=== PATIENT | female | born 1985 | race Caucasian/White ===

== ENCOUNTER → 2016-08-05 | Outpatient (CLI) | payer BC ==
[2016-08-05 16:05] LABS: CHLORIDE,CL 103 mmol/L (98-110); SODIUM,NA 139 mmol/L (136-146)
== END ==
LOC: MW.CHFP 15:30
PROVIDERS: ATTEND Nurse Practitioner Family
DX: R53.83 Other fatigue (principal)
CPT/HCPCS: 36415; 80053; 84443; 84703; 85025

== ENCOUNTER 2017-04-26 05:22 | Inpatient (IN) | payer BC ==
[2017-04-26] MEDS ORDERED: Sodium Chloride 0.9% 2.5 ML Syringe FLUSH PRN (05:33)
[2017-04-26] MEDS ORDERED: ceFAZolin 2 GM in Premix Bag 1 BAG IV ONE (05:33)
[2017-04-26] MEDS ORDERED: Sodium Chloride 0.9% 10 ML Syringe FLUSH PRN (05:33)
[2017-04-26] MEDS ORDERED: Oxytocin/0.9 % Sodium Chloride 30 UNIT/500 ML BAG IV SCH (05:45)
[2017-04-26] MEDS: Lactated Ringers 1,000 ML IV SCH ×2 (05:45→07:33)
[2017-04-26] MEDS: Citric Acid/Sodium Citrate Solution 30 ML Cup PO SCH ×2 (06:23→07:51)
[2017-04-26] MEDS ORDERED: Morphine PF 10 MG/10 ML SDV ONE (06:53)
[2017-04-26] MEDS ORDERED: Oxytocin 10 Units/1 ML SDV ONE (06:54)
[2017-04-26] MEDS ORDERED: Ondansetron 4 MG/2 ML SDV ONE (06:54)
[2017-04-26] MEDS ORDERED: Phenylephrine 1% 10 MG/ML SDV ONE (06:54)
--- NOTE | 2017-04-26 07:29 | PCM.PREANE ---
Preanesthetic Assessment - Anesthesia/Transfusion/Family Hx Anesthesia History: Prior Anesthesia Without Reaction Other Type of Anesthesia Reaction Comment: history of Motion sickness, Denies any problem with prior anesthesia Family History of Anesthesia Reaction: No Transfusion History: No Prior Transfusion(s) - Review of Systems General: No Symptoms Pulmonary: No Symptoms Cardiovascular: No Symptoms Gastrointestinal: No Symptoms Neurological: No Symptoms Other: Reports: None - Physical Assessment NPO Status Date: 04/25/17 Height: 1.63 m Weight: 75.75 kg ASA Class: 2 Mental Status: Alert & Oriented x3 Airway Class: Mallampati = 1 Dentition: Reports: Normal Dentition ROM/Head Extension: Full Lungs: Clear to Auscultation, Normal Respiratory Effort Cardiovascular: Regular Rate, Regular Rhythm - Lab Values: Laboratory Last Values WBC 8.67 K/uL (4.0-11.0) 04/25/17 15:24 RBC 3.81 M/uL (4.30-5.90) L 04/25/17 15:24 Hgb 11.6 g/dL (12.0-16.0) L 04/25/17 15:24 Hct 34.6 % (36.0-46.0) L 04/25/17 15:24 MCV 90.8 fL (80.0-98.0) 04/25/17 15:24 MCH 30.4 pg (27.0-32.0) 04/25/17 15:24 MCHC 33.5 g/dL (31.0-37.0) 04/25/17 15:24 RDW Std Deviation 45.8 fl (28.0-62.0) 04/25/17 15:24 RDW Coeff of Loulou 14 % (11.0-15.0) 04/25/17 15:24 Plt Count 189 K/uL (150-400) 04/25/17 15:24 MPV 11.10 fL (7.40-12.00) 04/25/17 15:24 Nucleated RBC % 0.0 /100WBC 04/25/17 15:24 Nucleated RBCs # 0 K/uL 04/25/17 15:24 Blood Type O POSITIVE 04/25/17 15:24 Antibody Screen NEGATIVE 04/25/17 15:24 - Allergies Allergies/Adverse Reactions: Allergies Allergy/AdvReac Type Severity Reaction Status Date / Time No Known Allergies Allergy Verified 03/06/15 19:42 - Anesthesia Plan Pre-Op Medication Ordered: Antacids - Acknowledgements Anesthesia Type Planned: Spinal Pt an Appropriate Candidate for the Planned Anesthesia: Yes Alternatives and Risks of Anesthesia Discussed w Pt/Guardian: Yes Pt/Guardian Understands and Agrees with Anesthesia Plan: Yes PreAnesthesia Questionnaire Cardiovascular History: Reports: Syncope Other Cardiovascular History: elevated blood pressure with 1st Gastrointestinal History: Reports: Other (See Below) Other Gastrointestinal History: occasional heartburn with Genitourinary History: Reports: None S [employer] WORKER History: Reports: Other OB/BYN History: Prior pre-term delivery due to eclampsia 33 weeks gestation . pre eclampsia Other Musculoskeletal History: Low and mid back pain, "related to the " Not chronic no problem in past Neurological History: Reports: Migraines Other Neuro History: hx: migraines 'no aura' Psychiatric History: Reports: Anxiety, Depression Other Psychiatric History: On medication when not Other Dermatologic History: Acne in - Past Surgical History Head Surgeries/Procedures: Reports: None Female Surgical History: Reports: Section, LEEP - SUBSTANCE USE Smoking Status *Q: Never Smoker Second Hand Smoke Exposure: No Recreational Drug Use History: No - HOME MEDS Home Medications: Home Meds Vit No.78/Iron/Fa [Prenatabs FA] 1 tab PO DAILY 02/25/15 [History] Acetaminophen [Tylenol Extra Strength] 1 tab PO ASDIRECTED PRN 04/20/17 [History ] Doxylamine Succinate [Unisom] 1 tab PO BEDTIME PRN 04/20/17 [History] - CURRENT (IN HOUSE) MEDS Current Meds: Current Medications Citric Acid/Sodium Citrate (Bicitra Solution) 30 ml PO .ONCE MICAH Last Admin: 04/26/17 06:23 Dose: 30 ml Lactated Ringer's (Ringers, Lactated) 1,000 mls @ 500 mls/hr IV .BOLUS MICAH Last Admin: 04/26/17 05:45 Dose: 500 mls/hr Oxytocin/Sodium Chloride (Oxytocin 30 Unit/500 Ml-Ns) 30 unit in 500 mls @ 250 mls/hr IV TITRATE MICAH Sodium Chloride (Saline Flush) 10 ml FLUSH ASDIRECTED PRN PRN Reason: Keep Vein Open Sodium Chloride (Saline Flush) 2.5 ml FLUSH ASDIRECTED PRN PRN Reason: Keep Vein Open Discontinued Medications Cefazolin Sodium/Dextrose 2 gm (/ Premix) 50 mls @ 100 mls/hr IV ONETIME ONE Stop: 04/26/17 06:02 Morphine Sulfate (Duramorph Pf) Confirm Administered Dose 10 mg .ROUTE .STK-MED ONE Stop: 04/26/17 06:54 Ondansetron HCl (Zofran) Confirm Administered Dose 4 mg .ROUTE .STK-MED ONE Stop: 04/26/17 06:55 Oxytocin (Pitocin) Confirm Administered Dose 20 unit .ROUTE .STK-MED ONE Stop: 04/26/17 06:55 Phenylephrine HCl (Burke-Synephrine) Confirm Administered Dose 10 mg .ROUTE .STK- MED ONE Stop: 04/26/17 06:55
[2017-04-26] MEDS ORDERED: fentaNYL 100 MCG/2 ML SDV IVPUSH PRN (08:27)
[2017-04-26] MEDS ORDERED: Nalbuphine 10 MG/1 ML Vial IVPUSH PRN (08:27)
[2017-04-26] MEDS ORDERED: Acetaminophen/oxyCODONE 325-5 MG Tab PO PRN ×2 (08:27→08:49)
[2017-04-26] MEDS ORDERED: Octyl 2-Cyanoacrylate 1 Tube ONE (08:38)
[2017-04-26] MEDS ORDERED: diphenhydrAMINE 50 MG/ML SDV IVPUSH PRN ×2 (08:49→09:29)
[2017-04-26] MEDS ORDERED: Bisacodyl 10 MG Supp RECTAL PRN (08:49)
[2017-04-26] MEDS ORDERED: Ondansetron 4 MG/2 ML SDV IV PRN (08:49)
[2017-04-26] MEDS ORDERED: Lanolin 100% Cream 7 GM Tube TOP PRN (08:49)
--- NOTE | 2017-04-26 08:57 | PCM.OPNOTE ---
- General Post-Op/Procedure Note Date of Surgery/Procedure: 04/26/17 Operative Procedure(s): repeat low transverse Findings: liveborn female 8/9 weight 4070 grams, normal pelvis Pre Op Diagnosis: Previous , 39 weeks gestation, declines VTOL Post-Op Diagnosis: Same Anesthesia Technique: Spinal Primary Surgeon: Aye Jimenez Anesthesia Provider: Pio Beck Estate Attorney: Heaven Grant Fluid Replacement, Intraop: 2,500 Output, Urine Amount: 200 EBL in mLs: 700 Complications: None Known Condition: Good
[2017-04-26] MEDS ORDERED: Lactated Ringers 1,000 ML IV SCH (09:00)
[2017-04-26] MEDS ORDERED: Naloxone 0.4 MG/ML Syringe IVPUSH PRN (09:29)
[2017-04-26] MEDS: Ketorolac 30 MG/ML SDV IVPUSH SCH ×3 (09:29→21:13)
--- NOTE | 2017-04-26 09:32 | PCM.POSTAN ---
POST ANESTHESIA ASSESSMENT - MENTAL STATUS Mental Status: Alert, Oriented - VITAL SIGNS Pulse Rate: 70 SaO2: 96 Resp Rate: 18 - RESPIRATORY Respiratory Status: Respiratory Rate WNL, Airway Patent, O2 Saturation Stable - CARDIOVASCULAR CV Status: Pulse Rate WNL, Blood Pressure Stable - GASTROINTESTINAL GI Status: No Symptoms - PAIN Pain Score: 0 - POST OP HYDRATION Hydration Status: Adequate & Stable
[2017-04-26] MEDS: Nalbuphine 10 MG/1 ML Vial IVPUSH PRN ×2 (10:31→13:09)
[2017-04-26] MEDS: Docusate Sodium 100 MG Cap PO SCH ×2 (10:31→21:13)
--- NOTE | 2017-04-26 10:33 | OR ---
SURGEON: Aye Jimenez M.D. DATE OF PROCEDURE: 04/26/2017 PREOPERATIVE DIAGNOSIS: A 39-week intrauterine . Prior delivery x2. Declines vaginal trial of labor. POSTOPERATIVE DIAGNOSIS: A 39-week intrauterine . Prior delivery x2. Declines vaginal trial of labor. PROCEDURE: Repeat low transverse section. ANESTHESIA: Spinal. ESTIMATED BLOOD LOSS: 700 mL with amniotic fluid. Fluids were 2500 mL of crystalloid. FINDINGS: Liveborn female, score 8 and 9, weighing 4070 g. Normal-appearing uterus, tubes, and ovaries. COMPLICATIONS: None known. DISPOSITION: Stable to recovery. BRIEF HISTORY: This is a 31-year-old female. She is G3, P1-1-0-2. She presents at 39 weeks' gestation for repeat delivery. This has been uncomplicated. She has been on baby aspirin until 36 weeks' gestation due to a history of HELLP syndrome. She is blood type O positive, rubella immune, group B strep negative. She does have a history of anxiety. She recently restarted Zoloft and is up to 50 mg daily. At this point, she desires a repeat delivery and she did have polyhydramnios during the with negative TORCH titers and reassuring biophysical profiles. She is group B strep negative. Risks of delivery were discussed including bleeding, infection, injury to bowel, bladder, blood vessels, injury to other organs, risk of thromboembolic event, risk of anesthesia. Understanding all these risks, she does desire to proceed. DESCRIPTION OF PROCEDURE: With the patient in left tilt position, under adequate spinal analgesia, the abdomen was prepped with chlorhexidine and draped in usual fashion for abdominal surgery. SCDs were in place. Alicia catheter had been placed and she received 2 g of Ancef IV. After documentation of adequate analgesia, the prior cicatrix was excised and the incision was carried through the subcutaneous tissue to the fascia, which was scored transversely in the midline. The fascial incision was extended laterally using curved Oshea scissors. The fascia was elevated from the underlying rectus muscle and using sharp and blunt dissection. The rectus muscles were in the midline. The parietal peritoneum was elevated with hemostats and incised using Metzenbaum scissors. A finger was placed into the peritoneal cavity. There were no adhesions. The incision was extended cephalad and caudad using sharp and blunt dissection. The Michael O C- section retractor was placed. The visceroperitoneum over the lower uterine segment was incised to develop an adequate bladder flap. A transverse curvilinear incision was made over the lower uterine segment using a scalpel. A finger was used to enter the amniotic cavity. Clear fluid was noted. The incision was extended using blunt dissection in a cephalad caudad traction. The head was delivered via the uterine incision with subsequent delivery of the 's shoulders and body without any difficulty. The cord was clamped x2 and cut and the was handed to the nurse in the presence of delivery. The was a liveborn female, score 8 and 9, weighing 4070 g. Cord blood was collected for cord ABGs as well as routine cord blood sampling. The placenta was removed by manual extraction. The uterus was cleaned with a dry laparotomy tape. The cervix was opened with ring forceps. The uterine incision was closed with a running locked suture of 0 Polysorb followed by an imbricating layer of 0 Polysorb. The uterine incision was hemostatic. The pericolic gutters, posterior cul-de-sac were cleaned with a wet laparotomy tape. The tubes and ovaries were inspected and appeared normal. There was noted to be a right paratubal cyst. The incision was again inspected and was hemostatic; therefore, the Michael O retractor was removed and after a final inspection confirmed hemostasis. The rectus muscles were loosely approximated in the midline using a running mattress suture of 0 Polysorb. The posterior aspect of the fascia was inspected for hemostasis and once this was confirmed, the fascial incision was closed using a running suture of 0 Polysorb. Subcutaneous tissue was copiously irrigated, cleaned, and cauterized for any areas of bleeding. The skin was then closed with a running subcuticular suture of 3-0 Polysorb followed by Dermabond. Final sponge, needle, and instrument counts were reported as correct. There were no known complications. Mother is in the recovery room in good condition. is in nursery in good condition. RICARDO TAYLOR /[id number]
[2017-04-26] MEDS: Sertraline 50 MG Tab PO SCH (21:13)
[2017-04-27] MEDS: Ketorolac 30 MG/ML SDV IVPUSH SCH ×2 (02:57→09:14)
[2017-04-27] MEDS: Docusate Sodium 100 MG Cap PO SCH ×2 (09:14→20:40)
--- NOTE | 2017-04-27 10:47 | PCM.PNPP ---
- General Info Date of Service: 04/27/17 Functional Status: Reports: Pain Controlled, Tolerating Diet, Ambulating, Urinating, Other (passed flatus) - Review of Systems General: Reports: No Symptoms HEENT: Reports: No Symptoms Pulmonary: Reports: No Symptoms Cardiovascular: Reports: No Symptoms Gastrointestinal: Reports: No Symptoms Genitourinary: Reports: No Symptoms Musculoskeletal: Reports: No Symptoms Skin: Reports: No Symptoms Neurological: Reports: No Symptoms Psychiatric: Reports: No Symptoms - General Info Date of Service: 04/27/17 - Patient Data Vital Signs - Most Recent: Last Vital Signs Temp 36.8 C 04/27/17 08:00 Pulse 95 04/27/17 04:00 Resp 20 04/27/17 08:00 BP 132/86 04/27/17 08:00 Pulse Ox 98 04/27/17 08:00 Weight - Most Recent: 75.75 kg I&O - Last 24 Hours: Intake & Output 04/26/17 04/27/17 04/27/17 22:59 06:59 14:59 Intake Total 400 Output Total 450 600 Balance -450 -200 Lab Results - Last 24 Hours: Laboratory Results - last 24 hr 04/27/17 Range/Units 05:10 Hgb 9.7 L (12.0-16.0) g/dL Hct 30.1 L (36.0-46.0) % Med Orders - Current: Current Medications Bisacodyl (Dulcolax) 10 mg RECTAL .ONCE PRN PRN Reason: Constipation Diphenhydramine HCl (Benadryl) 25 mg IVPUSH Q6H PRN PRN Reason: Itching or Nausea Last Admin: 04/26/17 15:10 Dose: 25 mg Docusate Sodium (Colace) 100 mg PO BID [facility] Last Admin: 04/27/17 09:14 Dose: 100 mg Emollient Ointment (Lansinoh Hpa) 0 gm TOP ASDIRECTED PRN PRN Reason: Sore Nipples Lactated Ringer's (Ringers, Lactated) 1,000 mls @ 125 mls/hr IV ASDIRECTED MICAH Last Admin: 04/26/17 19:42 Dose: 125 mls/hr Ibuprofen (Motrin) 800 mg PO Q8H PRN PRN Reason: mild pain or fever Ondansetron HCl (Zofran) 4 mg IV Q4H PRN PRN Reason: Nausea/Vomiting Oxycodone/Acetaminophen (Percocet 325-5 Mg) 1 tab PO Q4H PRN PRN Reason: Pain (moderate 4-6) Oxycodone/Acetaminophen (Percocet 325-5 Mg) 2 tab PO Q4H PRN PRN Reason: Pain (moderate 4-6) Sertraline HCl (Zoloft) 50 mg PO BEDTIME [facility] Last Admin: 04/26/17 21:13 Dose: 50 mg Discontinued Medications Citric Acid/Sodium Citrate (Bicitra Solution) 30 ml PO .ONCE [facility] Last Admin: 04/26/17 07:51 Dose: 30 ml Diphenhydramine HCl (Benadryl) 25 mg IVPUSH Q4H PRN PRN Reason: Itching Stop: 04/27/17 09:30 Last Admin: 04/26/17 19:49 Dose: 25 mg Fentanyl (Sublimaze) 50 mcg IVPUSH Q5M PRN PRN Reason: Pain (severe 7-10) Stop: 04/27/17 08:27 Cefazolin Sodium/Dextrose 2 gm (/ Premix) 50 mls @ 100 mls/hr IV ONETIME ONE Stop: 04/26/17 06:02 Lactated Ringer's (Ringers, Lactated) 1,000 mls @ 500 mls/hr IV .BOLUS [facility] Last Admin: 04/26/17 07:33 Dose: 999 mls/hr Oxytocin/Sodium Chloride (Oxytocin 30 Unit/500 Ml-Ns) 30 unit in 500 mls @ 250 mls/hr IV TITRATE [facility] Ketorolac Tromethamine (Toradol) 30 mg IVPUSH Q6H [facility] Stop: 04/27/17 09:01 Last Admin: 04/27/17 09:14 Dose: 30 mg Morphine Sulfate (Duramorph Pf) Confirm Administered Dose 10 mg .ROUTE .STK-MED ONE Stop: 04/26/17 06:54 Nalbuphine HCl (Nubain) 2.5 mg IVPUSH Q3H PRN PRN Reason: Pruritis Stop: 04/27/17 08:27 Nalbuphine HCl (Nubain) 5 mg IVPUSH Q3H PRN PRN Reason: Pruritis Stop: 04/27/17 09:30 Last Admin: 04/26/17 13:09 Dose: 5 mg Naloxone HCl (Narcan) 0.1 mg IVPUSH ONETIME PRN PRN Reason: Respiratory Depression Stop: 04/27/17 09:30 Octyl Cyanoacrylate (Dermabond Advance) Confirm Administered Dose 1 applic .ROUTE .STK-MED ONE Stop: 04/26/17 08:39 Ondansetron HCl (Zofran) Confirm Administered Dose 4 mg .ROUTE .STK-MED ONE Stop: 04/26/17 06:55 Oxycodone/Acetaminophen (Percocet 325-5 Mg) 1 tab PO ONETIME PRN PRN Reason: Pain (moderate 4-6) Oxytocin (Pitocin) Confirm Administered Dose 20 unit .ROUTE .STK-MED ONE Stop: 04/26/17 06:55 Phenylephrine HCl (Burke-Synephrine) Confirm Administered Dose 10 mg .ROUTE .STK- MED ONE Stop: 04/26/17 06:55 Sodium Chloride (Saline Flush) 10 ml FLUSH ASDIRECTED PRN PRN Reason: Keep Vein Open Sodium Chloride (Saline Flush) 2.5 ml FLUSH ASDIRECTED PRN PRN Reason: Keep Vein Open - Infant Interaction Disposition, : [place] to Nursery Infant Feeding: Breastfed Infant; Nursed Well Support Person: - Recovery Exam Fundal Tone: Firm Fundal Level: At Umbilicus Fundal Placement: Midline Lochia Amount: Scant Lochia Color: Rubra/Red Perineum Description: Intact, Minimal Bruising/Swelling - Exam General: Alert, Oriented HEENT: Pupils Equal Neck: Supple Lungs: Clear to Auscultation, Normal Respiratory Effort Cardiovascular: Regular Rate, Regular Rhythm GI/Abdominal Exam: Normal Bowel Sounds, Soft, Non-Tender, No Organomegaly, No Distention Extremities: Normal Inspection, Normal Range of Motion, Non-Tender, No Pedal Edema, Normal Capillary Refill Skin: Warm, Dry, Intact Wound/Incisions: Healing Well Neurological: No New Focal Deficit Psy/Mental Status: Alert, Normal Affect, Normal Mood - Problem List & Annotations (1) delivery delivered SNOMED Code(s): 388622775 Code(s): O82 - ENCOUNTER FOR DELIVERY WITHOUT INDICATION Status: Acute Current Visit: No (2) Depression affecting , SNOMED Code(s): 93937301 Code(s): O99.345 - OTHER MENTAL DISORDERS COMPLICATING THE PUERPERIUM; F32.9 - MAJOR DEPRESSIVE DISORDER, SINGLE EPISODE, UNSPECIFIED Status: Acute Current Visit: No - Problem List Review Problem List Initiated/Reviewed/Updated: Yes - My Orders Last 24 Hours: My Active Orders 04/26/17 21:00 Sertraline [Zoloft] 50 mg PO BEDTIME 04/26/17 Dinner Regular Diet [DIET] - Assessment Assessment:: PPD#1 after stable, minimal lochia, breast feeding well. Started Zoloft last night will need rx for - Plan Plan:: Continue care, anticipate discharge in morning, begin oral pain medications, encourage ambulation.
--- NOTE | 2017-04-27 12:03 | PCM48HPAN ---
Post Anesthesia Note - EVALUATION WITHIN 48HRS OF ANESTHETIC Vital Signs in Normal Range: Yes Patient Participated in Evaluation: Yes Respiratory Function Stable: Yes Airway Patent: Yes Cardiovascular Function Stable: Yes Hydration Status Stable: Yes Pain Control Satisfactory: Yes Nausea and Vomiting Control Satisfactory: Yes Mental Status Recovered: Yes - COMMENTS/OBSERVATIONS Free Text/Narrative:: Denies any complaints
[2017-04-27] MEDS: Acetaminophen/oxyCODONE 325-5 MG Tab PO PRN ×3 (12:46→22:13)
[2017-04-27] MEDS: Sertraline 50 MG Tab PO SCH (20:40)
[2017-04-27] MEDS: Ibuprofen 800 MG Tab PO PRN (20:44)
[2017-04-28] MEDS: Ibuprofen 800 MG Tab PO PRN (04:36)
[2017-04-28] MEDS: Acetaminophen/oxyCODONE 325-5 MG Tab PO PRN ×2 (05:42→10:27)
--- NOTE | 2017-04-28 08:07 | PCM.PNPP ---
<Tiki Light - Last Filed: 04/28/17 08:03> - General Info Date of Service: 04/28/17 Functional Status: Reports: Pain Controlled, Tolerating Diet, Ambulating, Urinating - Review of Systems General: Denies: Fever, Weakness, Fatigue Pulmonary: Denies: Shortness of Breath, Pleuritic Chest Pain, Cough Cardiovascular: Denies: Chest Pain, Palpitations, Dyspnea on Exertion Gastrointestinal: Denies: Abdominal Pain, Constipation Genitourinary: Denies: Dysuria - General Info Date of Service: 04/28/17 - Patient Data Vital Signs - Most Recent: Last Vital Signs Temp 36.6 C 04/28/17 04:00 Pulse 96 04/28/17 04:00 Resp 16 04/28/17 04:00 BP 135/83 04/28/17 04:00 Pulse Ox 96 04/28/17 04:00 Weight - Most Recent: 75.75 kg I&O - Last 24 Hours: Intake & Output 04/27/17 04/28/17 04/28/17 22:59 06:59 14:59 Intake Total 600 Output Total 1100 Balance -500 Med Orders - Current: Current Medications Bisacodyl (Dulcolax) 10 mg RECTAL .ONCE PRN PRN Reason: Constipation Diphenhydramine HCl (Benadryl) 25 mg IVPUSH Q6H PRN PRN Reason: Itching or Nausea Last Admin: 04/26/17 15:10 Dose: 25 mg Docusate Sodium (Colace) 100 mg PO BID [facility] Last Admin: 04/27/17 20:40 Dose: 100 mg Emollient Ointment (Lansinoh Hpa) 0 gm TOP ASDIRECTED PRN PRN Reason: Sore Nipples Lactated Ringer's (Ringers, Lactated) 1,000 mls @ 125 mls/hr IV ASDIRECTED [facility] Last Admin: 04/26/17 19:42 Dose: 125 mls/hr Ibuprofen (Motrin) 800 mg PO Q8H PRN PRN Reason: mild pain or fever Last Admin: 04/28/17 04:36 Dose: 800 mg Ondansetron HCl (Zofran) 4 mg IV Q4H PRN PRN Reason: Nausea/Vomiting Oxycodone/Acetaminophen (Percocet 325-5 Mg) 1 tab PO Q4H PRN PRN Reason: Pain (moderate 4-6) Last Admin: 04/28/17 05:42 Dose: 1 tab Oxycodone/Acetaminophen (Percocet 325-5 Mg) 2 tab PO Q4H PRN PRN Reason: Pain (moderate 4-6) Sertraline HCl (Zoloft) 50 mg PO BEDTIME [facility] Last Admin: 04/27/17 20:40 Dose: 50 mg Discontinued Medications Citric Acid/Sodium Citrate (Bicitra Solution) 30 ml PO .ONCE [facility] Last Admin: 04/26/17 07:51 Dose: 30 ml Diphenhydramine HCl (Benadryl) 25 mg IVPUSH Q4H PRN PRN Reason: Itching Stop: 04/27/17 09:30 Last Admin: 04/26/17 19:49 Dose: 25 mg Fentanyl (Sublimaze) 50 mcg IVPUSH Q5M PRN PRN Reason: Pain (severe 7-10) Stop: 04/27/17 08:27 Cefazolin Sodium/Dextrose 2 gm (/ Premix) 50 mls @ 100 mls/hr IV ONETIME ONE Stop: 04/26/17 06:02 Lactated Ringer's (Ringers, Lactated) 1,000 mls @ 500 mls/hr IV .BOLUS [facility] Last Admin: 04/26/17 07:33 Dose: 999 mls/hr Oxytocin/Sodium Chloride (Oxytocin 30 Unit/500 Ml-Ns) 30 unit in 500 mls @ 250 mls/hr IV TITRATE [facility] Ketorolac Tromethamine (Toradol) 30 mg IVPUSH Q6H [facility] Stop: 04/27/17 09:01 Last Admin: 04/27/17 09:14 Dose: 30 mg Morphine Sulfate (Duramorph Pf) Confirm Administered Dose 10 mg .ROUTE .STK-MED ONE Stop: 04/26/17 06:54 Nalbuphine HCl (Nubain) 2.5 mg IVPUSH Q3H PRN PRN Reason: Pruritis Stop: 04/27/17 08:27 Nalbuphine HCl (Nubain) 5 mg IVPUSH Q3H PRN PRN Reason: Pruritis Stop: 04/27/17 09:30 Last Admin: 04/26/17 13:09 Dose: 5 mg Naloxone HCl (Narcan) 0.1 mg IVPUSH ONETIME PRN PRN Reason: Respiratory Depression Stop: 04/27/17 09:30 Octyl Cyanoacrylate (Dermabond Advance) Confirm Administered Dose 1 applic .ROUTE .STK-MED ONE Stop: 04/26/17 08:39 Ondansetron HCl (Zofran) Confirm Administered Dose 4 mg .ROUTE .STK-MED ONE Stop: 04/26/17 06:55 Oxycodone/Acetaminophen (Percocet 325-5 Mg) 1 tab PO ONETIME PRN PRN Reason: Pain (moderate 4-6) Oxytocin (Pitocin) Confirm Administered Dose 20 unit .ROUTE .STK-MED ONE Stop: 04/26/17 06:55 Phenylephrine HCl (Burke-Synephrine) Confirm Administered Dose 10 mg .ROUTE .STK- MED ONE Stop: 04/26/17 06:55 Sodium Chloride (Saline Flush) 10 ml FLUSH ASDIRECTED PRN PRN Reason: Keep Vein Open Sodium Chloride (Saline Flush) 2.5 ml FLUSH ASDIRECTED PRN PRN Reason: Keep Vein Open - Interaction Infant Disposition, : [place] to Nursery Infant Interaction: Holding Infant Infant Feeding: Breastfed ; Nursed Well Support Person: - Recovery Exam Fundal Tone: Firm Fundal Level: 2 Fingerbreadths Below Umbilicus Fundal Placement: Midline Lochia Amount: Scant Lochia Color: Rubra/Red Perineum Description: Intact, Minimal Bruising/Swelling Episiotomy/Laceration: None Bladder Status: Voiding Urinary Elimination: Indwelling Catheter - Exam General: Alert, Oriented Lungs: Clear to Auscultation, Normal Respiratory Effort Cardiovascular: Regular Rate, Regular Rhythm GI/Abdominal Exam: Normal Bowel Sounds, Soft, Non-Tender Extremities: Normal Inspection, Normal Capillary Refill Skin: Warm, Dry, Intact - Problem List & Annotations (1) delivery delivered SNOMED Code(s): 283287087 Code(s): O82 - ENCOUNTER FOR DELIVERY WITHOUT INDICATION Status: Acute Current Visit: No - Problem List Review Problem List Initiated/Reviewed/Updated: Yes - Assessment Assessment:: PPD#2 after stable, minimal lochia, breast feeding well. Patient has resumed Zoloft. Discharge home today. - Plan Plan:: Discharge home today. Nothing in the vagina for 6 weeks. Continue PNV while breast feeding. Rx sent for Percocet to use as needed for pain. No lifting greater than 10lbs for 6 weeks. Instructed patient to call if she develops fever greater than 101, or bleeding through a large pad an hour. F/U with [facility] in 2 and 6 weeks. <TonyAye J - Last Filed: 04/28/17 08:28> - Patient Data Vital Signs - Most Recent: Last Vital Signs Temp 36.6 C 04/28/17 04:00 Pulse 96 04/28/17 04:00 Resp 16 04/28/17 04:00 BP 135/83 04/28/17 04:00 Pulse Ox 96 04/28/17 04:00 I&O - Last 24 Hours: Intake & Output 04/27/17 04/28/17 04/28/17 22:59 06:59 14:59 Intake Total 600 Output Total 1100 Balance -500 Med Orders - Current: Current Medications Bisacodyl (Dulcolax) 10 mg RECTAL .ONCE PRN PRN Reason: Constipation Diphenhydramine HCl (Benadryl) 25 mg IVPUSH Q6H PRN PRN Reason: Itching or Nausea Last Admin: 04/26/17 15:10 Dose: 25 mg Docusate Sodium (Colace) 100 mg PO BID [facility] Last Admin: 04/27/17 20:40 Dose: 100 mg Emollient Ointment (Lansinoh Hpa) 0 gm TOP ASDIRECTED PRN PRN Reason: Sore Nipples Lactated Ringer's (Ringers, Lactated) 1,000 mls @ 125 mls/hr IV ASDIRECTED [facility] Last Admin: 04/26/17 19:42 Dose: 125 mls/hr Ibuprofen (Motrin) 800 mg PO Q8H PRN PRN Reason: mild pain or fever Last Admin: 04/28/17 04:36 Dose: 800 mg Ondansetron HCl (Zofran) 4 mg IV Q4H PRN PRN Reason: Nausea/Vomiting Oxycodone/Acetaminophen (Percocet 325-5 Mg) 1 tab PO Q4H PRN PRN Reason: Pain (moderate 4-6) Last Admin: 04/28/17 05:42 Dose: 1 tab Oxycodone/Acetaminophen (Percocet 325-5 Mg) 2 tab PO Q4H PRN PRN Reason: Pain (moderate 4-6) Sertraline HCl (Zoloft) 50 mg PO BEDTIME [facility] Last Admin: 04/27/17 20:40 Dose: 50 mg Discontinued Medications Citric Acid/Sodium Citrate (Bicitra Solution) 30 ml PO .ONCE [facility] Last Admin: 04/26/17 07:51 Dose: 30 ml Diphenhydramine HCl (Benadryl) 25 mg IVPUSH Q4H PRN PRN Reason: Itching Stop: 04/27/17 09:30 Last Admin: 04/26/17 19:49 Dose: 25 mg Fentanyl (Sublimaze) 50 mcg IVPUSH Q5M PRN PRN Reason: Pain (severe 7-10) Stop: 04/27/17 08:27 Cefazolin Sodium/Dextrose 2 gm (/ Premix) 50 mls @ 100 mls/hr IV ONETIME ONE Stop: 04/26/17 06:02 Lactated Ringer's (Ringers, Lactated) 1,000 mls @ 500 mls/hr IV .BOLUS [facility] Last Admin: 04/26/17 07:33 Dose: 999 mls/hr Oxytocin/Sodium Chloride (Oxytocin 30 Unit/500 Ml-Ns) 30 unit in 500 mls @ 250 mls/hr IV TITRATE [facility] Ketorolac Tromethamine (Toradol) 30 mg IVPUSH Q6H [facility] Stop: 04/27/17 09:01 Last Admin: 04/27/17 09:14 Dose: 30 mg Morphine Sulfate (Duramorph Pf) Confirm Administered Dose 10 mg .ROUTE .STK-MED ONE Stop: 04/26/17 06:54 Nalbuphine HCl (Nubain) 2.5 mg IVPUSH Q3H PRN PRN Reason: Pruritis Stop: 04/27/17 08:27 Nalbuphine HCl (Nubain) 5 mg IVPUSH Q3H PRN PRN Reason: Pruritis Stop: 04/27/17 09:30 Last Admin: 04/26/17 13:09 Dose: 5 mg Naloxone HCl (Narcan) 0.1 mg IVPUSH ONETIME PRN PRN Reason: Respiratory Depression Stop: 04/27/17 09:30 Octyl Cyanoacrylate (Dermabond Advance) Confirm Administered Dose 1 applic .ROUTE .STK-MED ONE Stop: 04/26/17 08:39 Ondansetron HCl (Zofran) Confirm Administered Dose 4 mg .ROUTE .STK-MED ONE Stop: 04/26/17 06:55 Oxycodone/Acetaminophen (Percocet 325-5 Mg) 1 tab PO ONETIME PRN PRN Reason: Pain (moderate 4-6) Oxytocin (Pitocin) Confirm Administered Dose 20 unit .ROUTE .STK-MED ONE Stop: 04/26/17 06:55 Phenylephrine HCl (Burke-Synephrine) Confirm Administered Dose 10 mg .ROUTE .STK- MED ONE Stop: 04/26/17 06:55 Sodium Chloride (Saline Flush) 10 ml FLUSH ASDIRECTED PRN PRN Reason: Keep Vein Open Sodium Chloride (Saline Flush) 2.5 ml FLUSH ASDIRECTED PRN PRN Reason: Keep Vein Open - Problem List & Annotations (1) delivery delivered SNOMED Code(s): 172734705 Code(s): O82 - ENCOUNTER FOR DELIVERY WITHOUT INDICATION Status: Acute Current Visit: No (2) Depression affecting , SNOMED Code(s): 34327105 Code(s): O99.345 - OTHER MENTAL DISORDERS COMPLICATING THE PUERPERIUM; F32.9 - MAJOR DEPRESSIVE DISORDER, SINGLE EPISODE, UNSPECIFIED Status: Acute Current Visit: No - Problem List Review Problem List Initiated/Reviewed/Updated: Yes - Plan Plan:: Patient was examined by me and I agree with above.
[2017-04-28] MEDS: Docusate Sodium 100 MG Cap PO SCH (09:13)
[2017-04-28 11:47] VITALS: BP 115/79
== END 2017-04-28 12:45 | disposition home or self-care (01) | DRG 540 ==
LOC: MW.OB 05:22
PROVIDERS: ADMIT Obstetrics & Gynecology; ATTEND Obstetrics & Gynecology
PROC: 10D00Z1 Extraction of Products of Conception, Low, Open Approach (ICD-10-PCS; principal; 2017-04-26)
DX: O34.211 Maternal care for low transverse scar from previous cesarean delivery (principal); O99.345 Other mental disorders complicating the puerperium; Z3A.39 39 weeks gestation of pregnancy; Z37.0 Single live birth
CPT/HCPCS: 01961; 36415; 59025; 85014; 85018; 85027; 86850; 86900; 86901; A9270-GY; J0690; J1200; J1885; J2270; J2300; J2370; J2405; J2590; J7120

== ENCOUNTER 2018-12-27 15:46 | Inpatient (IN) | payer BC ==
[~2018-12-27 15:46] MED LIST: Citric Acid/Sodium Citrate Solution 30 ML Cup PO ONE; Oxytocin/0.9 % Sodium Chloride 30 UNIT/500 ML BAG IV SCH; ceFAZolin 2 GM in Premix Bag 1 BAG IV ONE
[2018-12-27] MEDS ORDERED: Sodium Chloride 0.9% 10 ML SDV IV PRN (15:47)
[2018-12-27] MEDS ORDERED: Sodium Chloride 0.9% 10 ML Syringe FLUSH PRN (15:47)
[2018-12-27] MEDS ORDERED: Sodium Chloride 0.9% 2.5 ML Syringe FLUSH PRN (15:47)
[2018-12-27] MEDS: Lactated Ringers 1,000 ML IV SCH ×2 (16:08→17:18)
--- NOTE | 2018-12-27 17:28 | PCM.PREANE ---
Preanesthetic Assessment - Anesthesia/Transfusion/Family Hx Anesthesia History: Prior Anesthesia Without Reaction Other Type of Anesthesia Reaction Comment: history of Motion sickness, Denies any problem with prior anesthesia Family History of Anesthesia Reaction: No Transfusion History: No Prior Transfusion(s) - Review of Systems General: No Symptoms Pulmonary: No Symptoms Cardiovascular: No Symptoms Gastrointestinal: No Symptoms Neurological: No Symptoms Other: Reports: None - Physical Assessment Height: 5 ft 4 in Weight: 124.738 kg ASA Class: 2 Mental Status: Alert & Oriented x3 Airway Class: Mallampati = 1 Dentition: Reports: Normal Dentition Thyro-Mental Finger Breadths: 3 Mouth Opening Finger Breadths: 3 ROM/Head Extension: Full Lungs: Clear to Auscultation, Normal Respiratory Effort Cardiovascular: Regular Rate, Regular Rhythm - Lab Values: Laboratory Last Values WBC 10.05 K/uL (4.0-11.0) 12/27/18 16:07 RBC 3.94 M/uL (4.30-5.90) L 12/27/18 16:07 Hgb 11.3 g/dL (12.0-16.0) L 12/27/18 16:07 Hct 35.0 % (36.0-46.0) L 12/27/18 16:07 MCV 88.8 fL (80.0-98.0) 12/27/18 16:07 MCH 28.7 pg (27.0-32.0) 12/27/18 16:07 MCHC 32.3 g/dL (31.0-37.0) 12/27/18 16:07 RDW Std Deviation 46.1 fl (28.0-62.0) 12/27/18 16:07 RDW Coeff of Loulou 14 % (11.0-15.0) 12/27/18 16:07 Plt Count 227 K/uL (150-400) 12/27/18 16:07 MPV 10.80 fL (7.40-12.00) 12/27/18 16:07 Nucleated RBC % 0.0 /100WBC 12/27/18 16:07 Nucleated RBCs # 0 K/uL 12/27/18 16:07 - Allergies Allergies/Adverse Reactions: Allergies Allergy/AdvReac Type Severity Reaction Status Date / Time No Known Allergies Allergy Verified 12/26/18 10:27 - Acknowledgements Anesthesia Type Planned: General Anesthesia, Spinal Pt an Appropriate Candidate for the Planned Anesthesia: Yes Alternatives and Risks of Anesthesia Discussed w Pt/Guardian: Yes Pt/Guardian Understands and Agrees with Anesthesia Plan: Yes PreAnesthesia Questionnaire HEENT History: Reports: None Cardiovascular History: Reports: Syncope Other Cardiovascular History: elevated blood pressure with 1st ( pre eclampsia), HELLP syndrome Respiratory History: Reports: Other (See Below) Other Respiratory History: SOB at times, has prescribed inhaler, has not used in over 2 months, pneumonia 2 years ago Gastrointestinal History: Reports: GERD, Other (See Below) Other Gastrointestinal History: occasional heartburn with Genitourinary History: Reports: None [employer]PER[employer] History: Reports: LMP (Approximate): Other OB/BYN History: Prior pre-term delivery due to eclampsia 33 weeks gestation . pre eclampsia Musculoskeletal History: Reports: Other (See Below) Other Musculoskeletal History: Low and mid back pain, "related to the " Not chronic no problem in past Neurological History: Reports: Migraines Other Neuro History: hx: migraines 'no aura' Psychiatric History: Reports: Anxiety, Depression Endocrine/Metabolic History: Reports: None Hematologic History: Reports: None Immunologic History: Reports: None Oncologic (Cancer) History: Reports: None Other Dermatologic History: Acne in - Past Surgical History Head Surgeries/Procedures: Reports: None HEENT Surgical History: Reports: None Cardiovascular Surgical History: Reports: None Respiratory Surgical History: Reports: None GI Surgical History: Reports: None Female Surgical History: Reports: Section, LEEP Other Female Surgeries/Procedures: LEEP 08/2011, c/section x3 Endocrine Surgical History: Reports: None Neurological Surgical History: Reports: None Musculoskeletal Surgical History: Reports: None Oncologic Surgical History: Reports: None - SUBSTANCE USE Smoking Status *Q: Never Smoker - HOME MEDS Home Medications: Home Meds Vit No.78/Iron/Fa [Prenatabs FA] 1 tab PO DAILY 02/25/15 [History] Acetaminophen [Tylenol Extra Strength] 1 tab PO ASDIRECTED PRN 04/20/17 [History ] Albuterol Sulfate [Albuterol Sulfate Hfa] 1 - 2 puff INH ASDIRECTED PRN [History] Sertraline [Zoloft] 100 mg PO BEDTIME 12/26/18 [History] - CURRENT (IN HOUSE) MEDS Current Meds: Current Medications Lactated Ringer's (Ringers, Lactated) 1,000 mls @ 500 mls/hr IV BOLUS [facility] Last Admin: 12/27/18 17:18 Dose: 500 mls/hr Oxytocin/Sodium Chloride (Oxytocin 30 Unit/500 Ml-Ns) 30 unit in 500 mls @ 250 mls/hr IV TITRATE [facility] Sodium Chloride (Saline Flush) 10 ml FLUSH ASDIRECTED PRN PRN Reason: Keep Vein Open Sodium Chloride (Saline Flush) 2.5 ml FLUSH ASDIRECTED PRN PRN Reason: Keep Vein Open Sodium Chloride (Normal Saline) 10 ml IV ASDIRECTED PRN PRN Reason: IV Use Discontinued Medications Citric Acid/Sodium Citrate (Bicitra Solution) 30 ml PO ONETIME ONE Stop: 12/27/18 15:36 Cefazolin Sodium/Dextrose 2 gm (/ Premix) 50 mls @ 100 mls/hr IV ONETIME ONE Stop: 12/27/18 16:04
[2018-12-27] MEDS ORDERED: Octyl 2-Cyanoacrylate 1 Tube ONE (17:30)
[2018-12-27 17:33] LABS: BLOOD UREA NITROGEN,BUN 10 mg/dL (7.0-18.0); CHLORIDE,CL 106 mmol/L (98-107); GLUCOSE RANDOM 67 mg/dL (74-106); SODIUM,NA 138 mmol/L (136-145)
[2018-12-27] MEDS ORDERED: Oxytocin 10 Units/1 ML SDV ONE (17:35)
[2018-12-27] MEDS ORDERED: Ondansetron 4 MG/2 ML SDV ONE (17:35)
[2018-12-27] MEDS ORDERED: Morphine PF 10 MG/10 ML SDV ONE (17:35)
[2018-12-27] MEDS ORDERED: ceFAZolin 1 GM Vial ONE (17:35)
[2018-12-27] MEDS ORDERED: Sodium Chloride 0.9% 20 ML ONE (17:35)
[2018-12-27] MEDS ORDERED: Phenylephrine/Normal Saline 100 MCG/ML 10 ML Syringe ONE (18:06)
[2018-12-27] MEDS ORDERED: ePHEDrine 50 MG/ML SDV ONE (18:10)
[2018-12-27] MEDS ORDERED: Water For Injection, Sterile 20 ML ONE (18:11)
[2018-12-27] MEDS ORDERED: Naloxone 0.4 MG/ML Syringe IVPUSH PRN (18:30)
--- NOTE | 2018-12-27 19:08 | PCM.OPNOTE ---
- General Post-Op/Procedure Note Date of Surgery/Procedure: 12/27/18 Operative Procedure(s): repeat low transverse Findings: Normal pelvis, liveborn female 8/8 weight 3550 grams. Pre Op Diagnosis: gestational hypertension, previous Post-Op Diagnosis: Same Anesthesia Technique: Spinal Primary Surgeon: Aye Jimenez Secondary Surgeon: Misti Dubose Anesthesia Provider: Gumaro [employer] Development Manager: Pio Samuel (\) Pathology: none Fluid Replacement, Intraop: 1,100 EBL in mLs: 500 Complications: None Known Condition: Good
[2018-12-27] MEDS ORDERED: diphenhydrAMINE 50 MG/ML SDV IVPUSH PRN (19:11)
[2018-12-27] MEDS ORDERED: Bisacodyl 10 MG Supp RECTAL PRN (19:11)
[2018-12-27] MEDS ORDERED: Acetaminophen/oxyCODONE 325-5 MG Tab PO PRN (19:11)
[2018-12-27] MEDS ORDERED: Ondansetron 4 MG/2 ML SDV IVPUSH PRN (19:11)
[2018-12-27] MEDS ORDERED: Lanolin 100% Cream 7 GM Tube TOP PRN (19:11)
[2018-12-27] MEDS ORDERED: Lactated Ringers 1,000 ML IV SCH (19:15)
[2018-12-27] MEDS: diphenhydrAMINE 50 MG/ML SDV IVPUSH PRN (19:20)
--- NOTE | 2018-12-27 19:38 | PCM.POSTAN ---
POST ANESTHESIA ASSESSMENT - MENTAL STATUS Mental Status: Alert, Oriented - VITAL SIGNS Pulse Rate: 80 SaO2: 97 Resp Rate: 16 Blood Pressure: 131/81 - RESPIRATORY Respiratory Status: Respiratory Rate WNL, Airway Patent, O2 Saturation Stable - CARDIOVASCULAR CV Status: Pulse Rate WNL, Blood Pressure Stable - GASTROINTESTINAL GI Status: No Symptoms - PAIN Pain Score: 0 - POST OP HYDRATION Hydration Status: Adequate & Stable
[2018-12-27] MEDS ORDERED: Nalbuphine 10 MG/1 ML Vial ONE (19:46)
[2018-12-27] MEDS ORDERED: Ketorolac 30 MG/ML SDV ONE (19:47)
[2018-12-27] MEDS: Ketorolac 30 MG/ML SDV IVPUSH SCH (20:55)
[2018-12-28] MEDS: Acetaminophen/oxyCODONE 325-5 MG Tab PO PRN ×4 (00:09→23:18)
--- NOTE | 2018-12-28 02:10 | OR ---
SURGEON: Aye Jimenez M.D. DATE OF PROCEDURE: 12/27/2018 PREOPERATIVE DIAGNOSES: 38 and 6/7th weeks intrauterine , gestational hypertension, and previous . POSTOPERATIVE DIAGNOSES: 38 and 6/7th weeks intrauterine , gestational hypertension, and previous . PROCEDURE PERFORMED: Repeat low-transverse section. ORTHOPEDIC TECHNICIAN: Misti uDbose MS-4. ESTIMATED BLOOD LOSS: 500 mL. FLUIDS: 1100 mL of crystalloid. FINDINGS: Liveborn female, scores of 8 and 8, weighing 3550 g. Normal-appearing uterus, tubes, and ovaries. COMPLICATIONS: None known. DISPOSITION: Stable to recovery. BRIEF HISTORY: This is a 32-year-old female. She is G4, P2-1-0-3. She presents at 38 and 6/7th weeks gestation for a visit in the office. Blood pressure was elevated with diastolics in the 80s. Previously, her diastolics have been running in the 60s. She also reports headache and visual changes. She has a history of severe HELLP syndrome and preeclampsia at 33 weeks gestation with a prior . Due to the change in blood pressure above baseline of greater than 20 as well as her neurologic symptoms, I did recommend proceeding with delivery 3 days prior to her scheduled and will monitor blood pressures following the to see if she requires treatment with magnesium. Risks of surgery including bleeding, infection, injury to bowel, bladder, blood vessels or other organs, risk of thromboembolic event, and risk of anesthesia were discussed. Understanding all these risks, she does desire to proceed. DESCRIPTION OF PROCEDURE: With the patient in the left tilt position under adequate spinal analgesia, the abdomen was prepped with chlorhexidine and draped in usual fashion for abdominal surgery. SCDs were in place. Alicia catheter had been placed and an appropriate time-out was held. After documentation of adequate analgesia, the prior cicatrix was excised with a scalpel and the incision was carried through the subcutaneous tissue to the fascia, which was scored transversely in the midline. The fascial incision was extended laterally using curved Oshea scissors and from the underlying rectus muscle using sharp and blunt dissection. The rectus muscles were in the midline using sharp dissection. A finger was used to enter the peritoneal cavity. There were no adhesions anteriorly. The incision was extended using sharp and blunt dissection. The Michael O retractor was placed. The visceroperitoneum over the lower uterine segment was incised to develop an adequate bladder flap. A transverse curvilinear incision was made over the lower uterine segment using a scalpel and the amniotic membranes were entered. Clear fluid was noted. The incision was extended by blunt dissection. The head was delivered via the uterine incision with fundal pressure. The was bulb suctioned by nose and mouth with subsequent delivery of the 's shoulders and body without any difficulty. After the cord had ceased to pulsate, it was doubly clamped and cut and the infant was handed to the nurse in attendance at delivery. The infant was a liveborn female, scores of 8 and 8, weighing 3550 g. Cord blood was collected for cord ABGs as well as routine cord blood sampling. Pitocin was initiated after delivery of the to assist with delivery of the placenta which was noted to have accessory lobe. The uterus was cleaned with a dry laparotomy tape. The cervix was opened with a ring forceps and the uterine incision was closed with a running lock suture of 0 Polysorb followed by an imbricating layer of 0 Polysorb and several [id number] sutures were placed for complete hemostasis. The tubes and ovaries were inspected. They appeared normal. The pericolic gutters and posterior cul-de-sac were cleaned with wet laparotomy tape. The uterine incision was again inspected and was hemostatic. Therefore, the Michael O retractor was removed. The rectus muscles were loosely approximated in the midline using a running mattress suture of 0 Polysorb. The posterior aspect of the fascia was inspected and was hemostatic. Therefore, the fascia was closed with a running suture of 0 Polysorb. Subcutaneous tissue was irrigated. Any areas of bleeding that were noted were cauterized. The skin was closed with a running subcuticular suture of 3-0 Monocryl. Final sponge, needle, and instrument counts were reported as correct. There were no known complications. Mother and baby are in recovery in good condition. RICARDO TAYLOR /[id number]
[2018-12-28] MEDS: Ketorolac 30 MG/ML SDV IVPUSH SCH ×4 (03:03→21:21)
[2018-12-28] MEDS: diphenhydrAMINE 50 MG/ML SDV IVPUSH PRN (03:04)
--- NOTE | 2018-12-28 05:07 | PCM48HPAN ---
Post Anesthesia Note - EVALUATION WITHIN 48HRS OF ANESTHETIC Vital Signs in Normal Range: Yes Patient Participated in Evaluation: Yes Respiratory Function Stable: Yes Airway Patent: Yes Cardiovascular Function Stable: Yes Hydration Status Stable: Yes Pain Control Satisfactory: Yes Nausea and Vomiting Control Satisfactory: Yes Mental Status Recovered: Yes Pulse Rate: 101 SaO2: 95 Resp Rate: 15 Blood Pressure: 128/73
--- NOTE | 2018-12-28 08:51 | PCM.PNPP ---
- General Info Date of Service: 12/28/18 Subjective Update: Headache is resolved, denies visual changes. Functional Status: Reports: Pain Controlled, Tolerating Diet, Ambulating, Urinating - Review of Systems General: Reports: No Symptoms HEENT: Reports: No Symptoms Pulmonary: Reports: No Symptoms Cardiovascular: Reports: No Symptoms Gastrointestinal: Reports: No Symptoms Genitourinary: Reports: No Symptoms Musculoskeletal: Reports: No Symptoms Skin: Reports: No Symptoms Neurological: Reports: No Symptoms Psychiatric: Reports: No Symptoms - General Info Date of Service: 12/28/18 - Patient Data Vital Signs - Most Recent: Last Vital Signs Temp 36.8 C 12/28/18 07:35 Pulse 76 12/28/18 08:00 Resp 17 12/28/18 08:00 BP 117/67 12/28/18 07:35 Pulse Ox 98 12/28/18 08:00 Weight - Most Recent: 79.832 kg I&O - Last 24 Hours: Intake & Output 12/27/18 12/28/18 12/28/18 22:59 06:59 14:59 Intake Total 1116 Output Total 100 400 Balance 1016 -400 Lab Results - Last 24 Hours: Laboratory Results - last 24 hr 12/27/18 12/27/18 12/27/18 Range/Units 16:07 16:07 16:50 WBC 10.05 (4.0-11.0) K/uL RBC 3.94 L (4.30-5.90) M/uL Hgb 11.3 L (12.0-16.0) g/dL Hct 35.0 L (36.0-46.0) % MCV 88.8 (80.0-98.0) fL MCH 28.7 (27.0-32.0) pg MCHC 32.3 (31.0-37.0) g/dL RDW Std Deviation 46.1 (28.0-62.0) fl RDW Coeff of Loulou 14 (11.0-15.0) % Plt Count 227 (150-400) K/uL MPV 10.80 (7.40-12.00) fL Nucleated RBC % 0.0 /100WBC Nucleated RBCs # 0 K/uL Cord ABG pH (7.18-7.38) Cord ABG Base Excess (-10--2) Cord VBG pH (7.25-7.45) Cord VBG Base Excess (-10--2) Sodium 138 (136-145) mmol/L Potassium 4.0 (3.5-5.1) mmol/L Chloride 106 (98-107) mmol/L Carbon Dioxide 20.0 L (21.0-32.0) mmol/L BUN 10 (7.0-18.0) mg/dL Creatinine 0.6 (0.6-1.0) mg/dL Est Cr Clr Drug Dosing 116.24 mL/min Estimated GFR (MDRD) > 60.0 ml/min Glucose 67 L (74-106) mg/dL Calcium 9.2 (8.5-10.1) mg/dL Total Bilirubin 0.4 (0.2-1.0) mg/dL AST 20 (15-37) IU/L ALT 21 (14-63) IU/L Alkaline Phosphatase 122 H (46-116) U/L Total Protein 5.8 L (6.4-8.2) g/dL Albumin 2.2 L (3.4-5.0) g/dL Globulin 3.6 (2.6-4.0) g/dL Albumin/Globulin Ratio 0.6 L (0.9-1.6) Blood Type O POSITIVE Antibody Screen NEGATIVE 12/27/18 12/28/18 Range/Units 18:28 05:30 WBC (4.0-11.0) K/uL RBC (4.30-5.90) M/uL Hgb 9.7 L (12.0-16.0) g/dL Hct 30.3 L (36.0-46.0) % MCV (80.0-98.0) fL MCH (27.0-32.0) pg MCHC (31.0-37.0) g/dL RDW Std Deviation (28.0-62.0) fl RDW Coeff of Loulou (11.0-15.0) % Plt Count (150-400) K/uL MPV (7.40-12.00) fL Nucleated RBC % /100WBC Nucleated RBCs # K/uL Cord ABG pH 7.202 (7.18-7.38) Cord ABG Base Excess -8 (-10--2) Cord VBG pH 7.263 (7.25-7.45) Cord VBG Base Excess -8 (-10--2) Sodium (136-145) mmol/L Potassium (3.5-5.1) mmol/L Chloride (98-107) mmol/L Carbon Dioxide (21.0-32.0) mmol/L BUN (7.0-18.0) mg/dL Creatinine (0.6-1.0) mg/dL Est Cr Clr Drug Dosing mL/min Estimated GFR (MDRD) ml/min Glucose (74-106) mg/dL Calcium (8.5-10.1) mg/dL Total Bilirubin (0.2-1.0) mg/dL AST (15-37) IU/L ALT (14-63) IU/L Alkaline Phosphatase (46-116) U/L Total Protein (6.4-8.2) g/dL Albumin (3.4-5.0) g/dL Globulin (2.6-4.0) g/dL Albumin/Globulin Ratio (0.9-1.6) Blood Type Antibody Screen Med Orders - Current: Current Medications Bisacodyl (Dulcolax) 10 mg RECTAL ONETIME PRN PRN Reason: Constipation Diphenhydramine HCl (Benadryl) 25 mg IVPUSH Q4H PRN PRN Reason: Itching Stop: 12/28/18 18:30 Last Admin: 12/28/18 03:04 Dose: 25 mg Diphenhydramine HCl (Benadryl) 25 mg IVPUSH Q6H PRN PRN Reason: Itching or Nausea Docusate Sodium (Colace) 100 mg PO BID [facility] Emollient Ointment (Lansinoh Hpa) 0 gm TOP ASDIRECTED PRN PRN Reason: Sore Nipples Lactated Ringer's (Ringers, Lactated) 1,000 mls @ 125 mls/hr IV ASDIRECTED [facility] Ibuprofen (Motrin) 800 mg PO Q8H PRN PRN Reason: mild pain or fever Ketorolac Tromethamine (Toradol) 30 mg IVPUSH Q6H MICAH Stop: 12/28/18 21:01 Last Admin: 12/28/18 03:03 Dose: 30 mg Nalbuphine HCl (Nubain) 5 mg IVPUSH Q3H PRN PRN Reason: Pruritis Stop: 12/28/18 18:30 Naloxone HCl (Narcan) 0.1 mg IVPUSH ONETIME PRN PRN Reason: Respiratory Depression Stop: 12/28/18 18:30 Ondansetron HCl (Zofran) 4 mg IVPUSH Q4H PRN PRN Reason: Nausea/Vomiting Oxycodone/Acetaminophen (Percocet 325-5 Mg) 1 tab PO Q4H PRN PRN Reason: Pain (moderate 4-6) Last Admin: 12/28/18 00:09 Dose: 1 tab Oxycodone/Acetaminophen (Percocet 325-5 Mg) 2 tab PO Q4H PRN PRN Reason: Pain (moderate 4-6) Discontinued Medications Cefazolin Sodium (Ancef) Confirm Administered Dose 1 gm .ROUTE .STK-MED ONE Stop: 12/27/18 17:36 Citric Acid/Sodium Citrate (Bicitra Solution) 30 ml PO ONETIME ONE Stop: 12/27/18 15:36 Ephedrine Sulfate (Ephedrine Sulfate) Confirm Administered Dose 50 mg .ROUTE .STK-MED ONE Stop: 12/27/18 18:11 Cefazolin Sodium/Dextrose 2 gm (/ Premix) 50 mls @ 100 mls/hr IV ONETIME ONE Stop: 12/27/18 16:04 Lactated Ringer's (Ringers, Lactated) 1,000 mls @ 500 mls/hr IV BOLUS MICAH Last Admin: 12/27/18 17:18 Dose: 500 mls/hr Oxytocin/Sodium Chloride (Oxytocin 30 Unit/500 Ml-Ns) 30 unit in 500 mls @ 250 mls/hr IV TITRATE MICAH Sodium Chloride (Normal Saline) Confirm Administered Dose 20 mls @ as directed .ROUTE .STK-MED ONE Stop: 12/27/18 17:36 Sterile Water (Sterile Water For Injection) Confirm Administered Dose 20 mls @ as directed .ROUTE .STK-MED ONE Stop: 12/27/18 18:12 Morphine Sulfate (Duramorph Pf) Confirm Administered Dose 10 mg .ROUTE .STK-MED ONE Stop: 12/27/18 17:36 Nalbuphine HCl (Nubain) Confirm Administered Dose 10 mg .ROUTE .STK-MED ONE Stop: 12/27/18 19:47 Last Admin: 12/27/18 20:05 Dose: 10 mg Octyl Cyanoacrylate (Dermabond Advance) Confirm Administered Dose 1 applic .ROUTE .STK-MED ONE Stop: 12/27/18 17:31 Ondansetron HCl (Zofran) Confirm Administered Dose 4 mg .ROUTE .STK-MED ONE Stop: 12/27/18 17:36 Oxytocin (Pitocin) Confirm Administered Dose 30 unit .ROUTE .STK-MED ONE Stop: 12/27/18 17:36 Phenylephrine HCl (Phenylephrine In Ns 100 Mcg/Ml) Confirm Administered Dose 1 mg .ROUTE .STK-MED ONE Stop: 12/27/18 18:07 Sodium Chloride (Saline Flush) 10 ml FLUSH ASDIRECTED PRN PRN Reason: Keep Vein Open Sodium Chloride (Saline Flush) 2.5 ml FLUSH ASDIRECTED PRN PRN Reason: Keep Vein Open Sodium Chloride (Normal Saline) 10 ml IV ASDIRECTED PRN PRN Reason: IV Use - Infant Interaction Disposition, : [place] in Room with Family Infant Interaction: Holding Infant Infant Feeding: Breastfed ; Nursed Well Support Person: - Recovery Exam Fundal Tone: Firm Fundal Level: 2 Fingerbreadths Below Umbilicus Fundal Placement: Midline Lochia Amount: Scant Lochia Color: Rubra/Red Perineum Description: Intact, Minimal Bruising/Swelling Episiotomy/Laceration: None Bladder Status: Voiding Urinary Elimination: Voided - Exam General: Alert, Oriented HEENT: Pupils Equal Neck: Supple Lungs: Normal Respiratory Effort GI/Abdominal Exam: Soft, Non-Tender Extremities: Normal Inspection, Non-Tender, No Pedal Edema Wound/Incisions: Healing Well Neurological: No New Focal Deficit - Problem List & Annotations (1) Transient hypertension during , SNOMED Code(s): 518016917, 555037922 Code(s): O13.5 - GESTATNL HTN WITHOUT SIGNIFICANT PROTEIN, COMP THE PUERP Status: Acute Current Visit: Yes (2) delivery delivered SNOMED Code(s): 210992213 Code(s): O82 - ENCOUNTER FOR DELIVERY WITHOUT INDICATION Status: Acute Current Visit: No - Problem List Review Problem List Initiated/Reviewed/Updated: Yes - My Orders Last 24 Hours: My Active Orders 12/27/18 15:35 Procedure Site Prep Instruct [RC] ASDIRECTED Vital Signs [RC] PER UNIT ROUTINE 12/27/18 15:51 Notify Provider Vital Signs [RC] PRN 12/27/18 19:11 Patient Status [ADT] Routine Ambulate [RC] PER UNIT ROUTINE Communication Order [RC] PER UNIT ROUTINE Communication Order [RC] PER UNIT ROUTINE Communication Order [RC] Per Unit Routine May Shower [RC] ASDIRECTED Notify Provider Vital Signs [RC] ASDIRECTED RT Incentive Spirometry [RC] Q2HWA Vital Signs [RC] PER UNIT ROUTINE Acetaminophen/oxyCODONE [Percocet 325-5 MG] 1 tab PO Q4H PRN Acetaminophen/oxyCODONE [Percocet 325-5 MG] 2 tab PO Q4H PRN Bisacodyl [Dulcolax] 10 mg RECTAL ONETIME PRN Lanolin [Lansinoh HPA] See Dose Instructions TOP ASDIRECTED PRN Ondansetron [Zofran] 4 mg IVPUSH Q4H PRN diphenhydrAMINE [Benadryl] 25 mg IVPUSH Q6H PRN Abdominal Binder [OM.PC] Urgent Assess Lochia [WOMSER] Per Unit Routine Assess Uterine Involution [WOMSER] Per Unit Routine Breast Pump [WOMSER] Per Unit Routine Peripheral IV Discontinue [OM.PC] Routine Sequential Compression Device [OM.PC] Per Unit Routine Resuscitation Status Routine 12/27/18 19:12 Antiembolic Devices [RC] PER UNIT ROUTINE 12/27/18 19:13 Notify Provider Intake and Out [RC] ASDIRECTED 12/27/18 19:15 Lactated Ringers [Ringers, Lactated] 1,000 ml IV ASDIRECTED 12/27/18 21:00 Docusate Sodium [Colace] 100 mg PO BID Ketorolac [Toradol] 30 mg IVPUSH Q6H 12/28/18 Breakfast Regular Diet [DIET] 12/29/18 03:00 Ibuprofen [Motrin] 800 mg PO Q8H PRN - Assessment Assessment:: POD#1 after repeat low transverse due to elevated BP. BP improved since delivery. Denies any neurologic symptoms at this time. - Plan Plan:: Pain is well controlled, tolerating diet, continue postop care.
[2018-12-28] MEDS: Docusate Sodium 100 MG Cap PO SCH ×2 (08:54→21:22)
[2018-12-28] MEDS: Nalbuphine 10 MG/1 ML Vial IVPUSH PRN ×2 (09:05→20:04)
[2018-12-28] MEDS ORDERED: diphenhydrAMINE 50 MG Cap PO PRN (23:11)
[2018-12-29] MEDS ORDERED: Ibuprofen 800 MG Tab PO PRN (03:00)
[2018-12-29] MEDS: Acetaminophen/oxyCODONE 325-5 MG Tab PO PRN ×2 (06:11→11:45)
--- NOTE | 2018-12-29 07:18 | PCM.PNPP ---
- General Info Date of Service: 12/29/18 Functional Status: Reports: Pain Controlled, Tolerating Diet, Ambulating, Urinating - Review of Systems General: Reports: No Symptoms. Denies: Fever, Chills HEENT: Reports: No Symptoms. Denies: Headaches, Visual Changes Pulmonary: Reports: No Symptoms. Denies: Shortness of Breath, Cough Cardiovascular: Reports: No Symptoms. Denies: Chest Pain, Palpitations Gastrointestinal: Reports: No Symptoms Genitourinary: Reports: No Symptoms Musculoskeletal: Reports: No Symptoms Skin: Reports: No Symptoms Neurological: Reports: No Symptoms. Denies: Dizziness, Headache, Paresthesia Psychiatric: Reports: No Symptoms - General Info Date of Service: 12/29/18 - Patient Data Vital Signs - Most Recent: Last Vital Signs Temp 97.7 F 12/29/18 03:45 Pulse 89 12/29/18 03:45 Resp 16 12/29/18 03:45 BP 118/73 12/29/18 03:45 Pulse Ox 96 12/29/18 03:45 Weight - Most Recent: 176 lb Med Orders - Current: Current Medications Bisacodyl (Dulcolax) 10 mg RECTAL ONETIME PRN PRN Reason: Constipation Diphenhydramine HCl (Benadryl) 25 mg IVPUSH Q6H PRN PRN Reason: Itching or Nausea Diphenhydramine HCl (Benadryl) 50 mg PO Q6H PRN PRN Reason: Itching Last Admin: 12/28/18 23:45 Dose: 50 mg Docusate Sodium (Colace) 100 mg PO BID MICAH Last Admin: 12/28/18 21:22 Dose: 100 mg Emollient Ointment (Lansinoh Hpa) 0 gm TOP ASDIRECTED PRN PRN Reason: Sore Nipples Last Admin: 12/28/18 21:22 Dose: 1 tube Lactated Ringer's (Ringers, Lactated) 1,000 mls @ 125 mls/hr IV ASDIRECTED MICAH Ibuprofen (Motrin) 800 mg PO Q8H PRN PRN Reason: mild pain or fever Last Admin: 12/29/18 03:31 Dose: 800 mg Ondansetron HCl (Zofran) 4 mg IVPUSH Q4H PRN PRN Reason: Nausea/Vomiting Oxycodone/Acetaminophen (Percocet 325-5 Mg) 1 tab PO Q4H PRN PRN Reason: Pain (moderate 4-6) Last Admin: 12/29/18 06:11 Dose: 1 tab Oxycodone/Acetaminophen (Percocet 325-5 Mg) 2 tab PO Q4H PRN PRN Reason: Pain (moderate 4-6) Discontinued Medications Cefazolin Sodium (Ancef) Confirm Administered Dose 1 gm .ROUTE .STK-MED ONE Stop: 12/27/18 17:36 Citric Acid/Sodium Citrate (Bicitra Solution) 30 ml PO ONETIME ONE Stop: 12/27/18 15:36 Diphenhydramine HCl (Benadryl) 25 mg IVPUSH Q4H PRN PRN Reason: Itching Stop: 12/28/18 18:30 Last Admin: 12/28/18 03:04 Dose: 25 mg Ephedrine Sulfate (Ephedrine Sulfate) Confirm Administered Dose 50 mg .ROUTE .STK-MED ONE Stop: 12/27/18 18:11 Cefazolin Sodium/Dextrose 2 gm (/ Premix) 50 mls @ 100 mls/hr IV ONETIME ONE Stop: 12/27/18 16:04 Lactated Ringer's (Ringers, Lactated) 1,000 mls @ 500 mls/hr IV BOLUS MICAH Last Admin: 12/27/18 17:18 Dose: 500 mls/hr Oxytocin/Sodium Chloride (Oxytocin 30 Unit/500 Ml-Ns) 30 unit in 500 mls @ 250 mls/hr IV TITRATE MICAH Sodium Chloride (Normal Saline) Confirm Administered Dose 20 mls @ as directed .ROUTE .STK-MED ONE Stop: 12/27/18 17:36 Sterile Water (Sterile Water For Injection) Confirm Administered Dose 20 mls @ as directed .ROUTE .STK-MED ONE Stop: 12/27/18 18:12 Ketorolac Tromethamine (Toradol) 30 mg IVPUSH Q6H MICAH Stop: 12/28/18 21:01 Last Admin: 12/28/18 21:21 Dose: 30 mg Ketorolac Tromethamine (Toradol) 30 mg .ROUTE .STK-MED ONE Stop: 12/27/18 19:48 Morphine Sulfate (Duramorph Pf) Confirm Administered Dose 10 mg .ROUTE .STK-MED ONE Stop: 12/27/18 17:36 Nalbuphine HCl (Nubain) 5 mg IVPUSH Q3H PRN PRN Reason: Pruritis Stop: 12/28/18 18:30 Last Admin: 12/28/18 20:04 Dose: 5 mg Nalbuphine HCl (Nubain) Confirm Administered Dose 10 mg .ROUTE .STK-MED ONE Stop: 12/27/18 19:47 Last Admin: 12/27/18 20:05 Dose: 10 mg Naloxone HCl (Narcan) 0.1 mg IVPUSH ONETIME PRN PRN Reason: Respiratory Depression Stop: 12/28/18 18:30 Octyl Cyanoacrylate (Dermabond Advance) Confirm Administered Dose 1 applic .ROUTE .STK-MED ONE Stop: 12/27/18 17:31 Ondansetron HCl (Zofran) Confirm Administered Dose 4 mg .ROUTE .STK-MED ONE Stop: 12/27/18 17:36 Oxytocin (Pitocin) Confirm Administered Dose 30 unit .ROUTE .STK-MED ONE Stop: 12/27/18 17:36 Phenylephrine HCl (Phenylephrine In Ns 100 Mcg/Ml) Confirm Administered Dose 1 mg .ROUTE .STK-MED ONE Stop: 12/27/18 18:07 Sodium Chloride (Saline Flush) 10 ml FLUSH ASDIRECTED PRN PRN Reason: Keep Vein Open Sodium Chloride (Saline Flush) 2.5 ml FLUSH ASDIRECTED PRN PRN Reason: Keep Vein Open Sodium Chloride (Normal Saline) 10 ml IV ASDIRECTED PRN PRN Reason: IV Use - Infant Interaction Infant Disposition, : [place] in Room with Family Infant Interaction: Holding Infant Feeding: Breastfed Infant; Nursed Well Support Person: - Recovery Exam Fundal Tone: Firm Fundal Level: 2 Fingerbreadths Below Umbilicus Fundal Placement: Midline Lochia Amount: Scant Lochia Color: Rubra/Red Other Perinuem Description: Exam not performed due to medical student not having a heat reader Episiotomy/Laceration: None Bladder Status: Voiding Urinary Elimination: Voided - Exam General: Alert, Oriented Neck: Supple Lungs: Clear to Auscultation, Normal Respiratory Effort Cardiovascular: Regular Rate, Regular Rhythm GI/Abdominal Exam: Normal Bowel Sounds, Soft, Non-Tender, No Organomegaly, No Distention, No Abnormal Bruit, No Mass, Pelvis Stable Extremities: Normal Inspection, Normal Range of Motion, Non-Tender, No Pedal Edema, Normal Capillary Refill Skin: Warm, Dry, Intact Wound/Incisions: Healing Well Neurological: No New Focal Deficit Psy/Mental Status: Alert, Normal Affect, Normal Mood - Problem List Review Problem List Initiated/Reviewed/Updated: Yes - Assessment Assessment:: POD#2 after repeat low transverse due to elevated BP. BP improved since delivery. Denies any neurologic symptoms at this time. - Plan Plan:: Pain is well controlled, tolerating diet, continue postop care.
[2018-12-29] MEDS: Docusate Sodium 100 MG Cap PO SCH (08:33)
[2018-12-29 15:18] VITALS: BP 118/80; PULSE 99
== END 2018-12-29 15:00 | disposition home or self-care (01) | DRG 540 ==
LOC: MW.OB 15:46
PROVIDERS: ADMIT Obstetrics & Gynecology; ATTEND Obstetrics & Gynecology
PROC: 10D00Z1 Extraction of Products of Conception, Low, Open Approach (ICD-10-PCS; principal; 2018-12-27)
DX: O34.211 Maternal care for low transverse scar from previous cesarean delivery (principal); O99.344 Other mental disorders complicating childbirth; F32.9 Major depressive disorder, single episode, unspecified; F41.9 Anxiety disorder, unspecified; O13.4 Gestational [pregnancy-induced] hypertension without significant proteinuria, complicating childbirth; G43.909 Migraine, unspecified, not intractable, without status migrainosus; O75.89 Other specified complications of labor and delivery; Z3A.38 38 weeks gestation of pregnancy; Z37.0 Single live birth
CPT/HCPCS: 36415; 59025; 80053; 82803; 85014; 85018; 85027; 86850; 86900; 86901; A9270-GY; J0690; J1200; J1885; J2270; J2300; J2370; J2405; J2590; J7120

== ENCOUNTER 2019-01-02 18:49 | Emergency (ER) | payer BC ==
[2019-01-02] MEDS ORDERED: Ketorolac 30 MG/ML SDV IVPUSH ONE (19:27)
--- NOTE | 2019-01-02 19:49 | EDM.PDOC ---
ED HPI GENERAL MEDICAL PROBLEM - General Chief Complaint: Headache Stated Complaint: PT HAS HIGH BLOOD PRESSURE Time Seen by Provider: 01/02/19 19:00 Source of Information: Reports: Patient History Limitations: Reports: No Limitations - History of Present Illness INITIAL COMMENTS - FREE TEXT/NARRATIVE: HISTORY AND PHYSICAL: History of present illness: Presents reporting high blood pressure and headache. Patient states that she delivered her fourth child by section on 2018. She had intermittent elevated blood pressure during this as well as her other pregnancies. Otherwise, this was uneventful and she did not have eclampsia. She was delivered a couple of days early due to the high blood pressure. She was not discharged to home on blood pressure medications as the highest her postdelivery blood pressure was was 136/88. She is breast-feeding. She states that the last few days she has felt "hung over, like a postanesthesia effect". Also has an occipital headache, ringing in the ears, mild nausea and now today she checked her blood pressure and it was 200/120. She denies dysuria, fever, swelling or visual symptoms. She has been eating and drinking normally. Review of systems: As per history of present illness and below otherwise all systems reviewed and negative. Past medical history: As per history of present illness and as reviewed below otherwise noncontributory. Surgical history: As per history of present illness and as reviewed below otherwise noncontributory. Social history: No reported history of drug or alcohol abuse. Family history: As per history of present illness and as reviewed below otherwise noncontributory. Physical exam: HEENT: Atraumatic, normocephalic, pupils reactive, negative for conjunctival pallor or scleral icterus, mucous membranes moist, throat clear, neck supple, nontender, trachea midline. Lungs: Clear to auscultation, breath sounds equal bilaterally, chest nontender. Heart: S1S2, regular, negative for clicks, rubs, or JVD. Abdomen: Soft, nondistended, nontender. Negative for masses or hepatosplenomegaly. Negative for costovertebral tenderness. Pelvis: Stable nontender. Genitourinary: Deferred. Rectal: Deferred. Extremities: Atraumatic, negative for cords or calf pain. Neurovascular unremarkable. Neuro: Awake, alert, oriented. Cranial nerves II through XII unremarkable. Cerebellum unremarkable. Motor and sensory unremarkable throughout. Exam nonfocal. Diagnostics: [] Therapeutics: [] Impression: [] Plan: [] Definitive disposition and diagnosis as appropriate pending reevaluation and review of above. Headache Pain Score (Numeric/FACES): 4 - Related Data Allergies Allergy/AdvReac Type Severity Reaction Status Date / Time No Known Allergies Allergy Verified 01/02/19 20:02 Home Meds: Home Meds Sertraline [Zoloft] 100 mg PO BEDTIME 12/26/18 [History] Acetaminophen/oxyCODONE [Percocet 325-5 MG] 1 tab PO Q4H PRN #20 tablet [Rx] Ibuprofen [Motrin] 800 mg PO Q8H PRN 30 Days #30 tablet 12/29/18 [Rx] NIFEdipine [Nifedical XL] 1 tab PO DAILY #10 tab.er 01/02/19 [Rx] Past Medical History HEENT History: Reports: None Cardiovascular History: Reports: Syncope Other Cardiovascular History: elevated blood pressure with 1st ( pre eclampsia), HELLP syndrome Respiratory History: Reports: Other (See Below) Other Respiratory History: SOB at times, has prescribed inhaler, has not used in over 2 months, pneumonia 2 years ago Gastrointestinal History: Reports: GERD, Other (See Below) Other Gastrointestinal History: occasional heartburn with Genitourinary History: Reports: None [employer]EDIT LEASING CONSULTANT History: Reports: Other TAX CREDIT LEASING CONSULTANT History: Prior pre-term delivery due to eclampsia 33 weeks gestation . pre eclampsia Musculoskeletal History: Reports: Other (See Below) Other Musculoskeletal History: Low and mid back pain, "related to the " Not chronic no problem in past Neurological History: Reports: Migraines Other Neuro History: hx: migraines 'no aura' Psychiatric History: Reports: Anxiety, Depression Endocrine/Metabolic History: Reports: None Hematologic History: Reports: None Immunologic History: Reports: None Oncologic (Cancer) History: Reports: None Other Dermatologic History: Acne in - Infectious Disease History Infectious Disease History: Reports: Chicken Pox - Past Surgical History Head Surgeries/Procedures: Reports: None HEENT Surgical History: Reports: None Cardiovascular Surgical History: Reports: None Respiratory Surgical History: Reports: None GI Surgical History: Reports: None Female Surgical History: Reports: Section, LEEP Other Female Surgeries/Procedures: LEEP 08/2011, c/section x3 Endocrine Surgical History: Reports: None Neurological Surgical History: Reports: None Musculoskeletal Surgical History: Reports: None Oncologic Surgical History: Reports: None Social & Family History - Family History Family Medical History: Noncontributory - Tobacco Use Smoking Status *Q: Never Smoker - Caffeine Use Caffeine Use: Reports: Coffee, Soda - Recreational Drug Use Recreational Drug Use: No ED ROS GENERAL - Review of Systems Review Of Systems: ROS reveals no pertinent complaints other than HPI. Cardiovascular: Reports: Blood Pressure Problem, Other (Patient states she does not normally have a low heart rate. Patient states that when she is not her blood pressure normally runs low.) - Physical Exam Exam: See Below Exam Limited By: No Limitations General Appearance: Alert, No Apparent Distress Ears: Normal External Exam Nose: Normal Inspection Throat/Mouth: Normal Inspection Head Exam: Atraumatic, Normocephalic Neck: Normal Inspection Respiratory/Chest: No Respiratory Distress, Lungs Clear, Normal Breath Sounds Cardiovascular: Normal Peripheral Pulses, Regular Rate, Rhythm, No Edema, No Murmur GI/Abdominal: Normal Bowel Sounds, Soft, Non-Tender, No Distention Neuro Exam (Abbreviated): Alert, Oriented, CN II-XII Intact, Normal Cognition, No Motor/Sensory Deficits DTR: 4+: Patella (R) (Hyper clonus), Patella (L) (Hyper clonus) Extremities: Normal Inspection, No Pedal Edema Psychiatric: Normal Affect, Normal Mood Skin Exam: Warm, Dry, Intact, Normal Color, No Rash Course - Vital Signs Last Recorded V/S: Last Vital Signs Temp 36.2 C 01/02/19 18:55 Pulse 77 01/02/19 22:05 Resp 18 01/02/19 22:05 BP 134/89 01/02/19 22:05 Pulse Ox 98 01/02/19 22:05 - Orders/Labs/Meds Orders: Active Orders 24 hr Category Date Time Status CULTURE URINE [RM] Stat Lab 01/02/19 19:18 Received NIFEdipine [Procardia XL] Med 01/02/19 22:09 Once 30 mg PO ONETIME ONE Medication Orders Nifedipine (Procardia Xl) 30 mg PO ONETIME ONE Stop: 01/02/19 22:10 Labs: Laboratory Tests 01/02/19 01/02/19 01/02/19 Range/Units 19:18 19:18 19:18 WBC 5.98 (4.0-11.0) K/uL RBC 3.83 L (4.30-5.90) M/uL Hgb 11.0 L (12.0-16.0) g/dL Hct 34.4 L (36.0-46.0) % MCV 89.8 (80.0-98.0) fL MCH 28.7 (27.0-32.0) pg MCHC 32.0 (31.0-37.0) g/dL RDW Std Deviation 46.4 (28.0-62.0) fl RDW Coeff of [place] 14 (11.0-15.0) % Plt Count 323 (150-400) K/uL MPV 10.40 (7.40-12.00) fL Neut % (Auto) 62.7 (48.0-80.0) % Lymph % (Auto) 28.9 (16.0-40.0) % [place] % (Auto) 5.9 (0.0-15.0) % Eos % (Auto) 2.2 (0.0-7.0) % Baso % (Auto) 0.3 (0.0-1.5) % Neut # (Auto) 3.8 (1.4-5.7) K/uL Lymph # (Auto) 1.7 (0.6-2.4) K/uL [place] # (Auto) 0.4 (0.0-0.8) K/uL Eos # (Auto) 0.1 (0.0-0.7) K/uL Baso # (Auto) 0.0 (0.0-0.1) K/uL Nucleated RBC % 0.0 /100WBC Nucleated RBCs # 0 K/uL Sodium 142 (136-145) mmol/L Potassium 4.1 (3.5-5.1) mmol/L Chloride 107 (98-107) mmol/L Carbon Dioxide 25.3 (21.0-32.0) mmol/L BUN 18 (7.0-18.0) mg/dL Creatinine 0.7 (0.6-1.0) mg/dL Est Cr Clr Drug Dosing 98.71 mL/min Estimated GFR (MDRD) > 60.0 ml/min Glucose 88 (74-106) mg/dL Calcium 9.4 (8.5-10.1) mg/dL Total Bilirubin 0.2 (0.2-1.0) mg/dL AST 21 (15-37) IU/L ALT 30 (14-63) IU/L Alkaline Phosphatase 121 H (46-116) U/L Total Protein 6.6 (6.4-8.2) g/dL Albumin 2.5 L (3.4-5.0) g/dL Globulin 4.1 H (2.6-4.0) g/dL Albumin/Globulin Ratio 0.6 L (0.9-1.6) Urine Color YELLOW Urine Appearance CLEAR Urine pH 7.0 (5.0-8.0) Ur Specific [place] 1.020 (1.001-1.035) Urine Protein TRACE H (NEGATIVE) mg/dL Urine Glucose (UA) NEGATIVE (NEGATIVE) mg/dL Urine Ketones NEGATIVE (NEGATIVE) mg/dL Urine Occult Blood MODERATE H (NEGATIVE) Urine Nitrite NEGATIVE (NEGATIVE) Urine Bilirubin NEGATIVE (NEGATIVE) Urine Urobilinogen 0.2 (<2.0) EU/dL Ur Leukocyte Esterase TRACE H (NEGATIVE) Urine RBC 3-6 (0-2/HPF) Urine WBC 2-4 (0-5/HPF) Ur Epithelial Cells RARE (NONE-FEW) Urine Bacteria RARE (NEGATIVE) Meds: Medications Generic Name Dose Route Start Last Admin Trade Name Freq PRN Reason Stop Dose Admin Nifedipine 30 mg 01/02/19 22:09 Procardia Xl PO 01/02/19 22:10 ONETIME ONE Discontinued Medications Generic Name Dose Route Start Last Admin Trade Name Freq PRN Reason Stop Dose Admin Hydralazine HCl 10 mg 01/02/19 20:18 01/02/19 20:28 Apresoline IVPUSH 01/02/19 20:19 10 mg ONETIME ONE Administration Hydralazine HCl 10 mg 01/02/19 21:20 01/02/19 21:40 Apresoline IVPUSH 01/02/19 21:21 10 mg ONETIME ONE Administration Ketorolac Tromethamine 30 mg 01/02/19 19:27 01/02/19 19:38 Toradol IVPUSH 01/02/19 19:28 30 mg ONETIME ONE Administration - Re-Assessments/Exams Free Text/Narrative Re-Assessment/Exam: 01/02/19 22:11 The patient states her headache and ringing in the ears has totally resolved. She is not nauseated. After 2 doses of IV hydralazine her blood pressures come down--the latest 134/89. The patient states she totally understands the urgency of elevated blood pressure. She has a machine at home and has to get up to breastfeed. She assures me that she will return promptly for elevated blood pressure, headache, vomiting. She will call Dr. Jimenez, her OB in the am. Free Text/Narrative Re-Assessment/Exam: 01/02/19 20:15 Case reviewed including vitals and labwork with Dr. Josy Metzger, [employer]ING CONSULTANT. Same recommended treatment in the ER with hydralazine. If blood pressure comes down , discharge on Procardia XL 30 q day and follow up with Dr. Jimenez. If BP does not respond well, admit for observation. Departure - Departure Time of Disposition: 22:15 Disposition: Home, Self-Care 01 Condition: Good Clinical Impression: hypertension - Discharge Information Prescriptions: NIFEdipine [Nifedical XL] 1 tab PO DAILY #10 tab.er Referrals: PCP,None [Primary Care Provider] - Aye Jimenez MD [Physician] - Forms: ED Department Discharge Additional Instructions: The following information is given to patients seen in the emergency department who are being discharged to home. This information is to outline your options for follow-up care. We provide all patients seen in our emergency department with a follow-up referral. The need for follow-up, as well as the timing and circumstances, are variable depending upon the specifics of your emergency department visit. If you don't have a primary care physician on staff, we will provide you with a referral. We always advise you to contact your personal physician following an emergency department visit to inform them of the circumstance of the visit and for follow-up with them and/or the need for any referrals to a consulting specialist. The emergency department will also refer you to a specialist when appropriate. This referral assures that you have the opportunity for follow-up care with a specialist. All of these measure are taken in an effort to provide you with optimal care, which includes your follow-up. Under all circumstances we always encourage you to contact your private physician who remains a resource for coordinating your care. When calling for follow-up care, please make the office aware that this follow-up is from your recent emergency room visit. If for any reason you are refused follow-up, please contact the [facility] Emergency Department at and asked to speak to the emergency department charge nurse. 1. Monitor your blood pressure during the night. Report promptly for blood pressures greater than 150 top number or greater than 90 bottom number or for headaches, vomiting or other worrisome symptoms. 2. Take her Procardia once daily. 3. Call Dr. Jimenez, your TAX CREDIT LEASING CONSULTANT in the morning. - My Orders Last 24 Hours: My Active Orders 01/02/19 19:18 CULTURE URINE [RM] Stat 01/02/19 22:09 NIFEdipine [Procardia XL] 30 mg PO ONETIME ONE - Assessment/Plan Last 24 Hours: My Active Orders 01/02/19 19:18 CULTURE URINE [RM] Stat 01/02/19 22:09 NIFEdipine [Procardia XL] 30 mg PO ONETIME ONE
[2019-01-02 19:54] LABS: BLOOD UREA NITROGEN,BUN 18 mg/dL (7.0-18.0); CARBON DIOXIDE,CO2 25.3 mmol/L (21.0-32.0); CHLORIDE,CL 107 mmol/L (98-107); GLUCOSE RANDOM 88 mg/dL (74-106); POTASSIUM,K 4.1 mmol/L (3.5-5.1); SODIUM,NA 142 mmol/L (136-145)
[2019-01-02] MEDS ORDERED: hydrALAZINE 20 MG/ML SDV IVPUSH ONE ×2 (20:18→21:20)
[2019-01-02] MEDS ORDERED: NIFEdipine 30 MG Tab.ER PO ONE (22:09)
[2019-01-02 22:25] VITALS: BP 133/84
[2019-01-02 22:26] VITALS: PULSE 67
== END 2019-01-02 22:32 | disposition home or self-care (01) ==
LOC: MW.ED 18:49
DX: O16.5 Unspecified maternal hypertension, complicating the puerperium (principal); O99.345 Other mental disorders complicating the puerperium; F41.9 Anxiety disorder, unspecified; F32.9 Major depressive disorder, single episode, unspecified; Z79.899 Other long term (current) drug therapy
CPT/HCPCS: 36415; 80053; 81001; 85025; 87086; 96374; 96375; 96376; 99283; A9270; J0360; J1885